=== PATIENT | female | born 1970 | race Caucasian/White ===

== ENCOUNTER 2020-11-30 04:31 | Inpatient (IN) | payer OTHER ==
[~2020-11-30] VITALS: Ht 162.6 cm; Wt 157.8 kg
[2020-11-30 05:53] LABS: Basophils # (auto) 0.1 10 ^3/uL (0-0.2); Basophils % (auto) 0.6 % (0.0-2.0); Eosinophils # (auto) 0 10 ^3/uL (0-0.8); Eosinophils % (auto) 0.5 % (0.0-7.0); Hematocrit 40.6 % (36.0-46.0); Hemoglobin 14.2 g/dL (12.2-16.2); Lymphocytes # (auto) 1.9 10 ^3/uL (0.4-5.4); Mean Corpuscular Hemoglobin 31.4 pg (28.0-32.0); Mean Corpuscular Hgb Conc. 34.8 g/dL (32.0-36.0); Mean Corpuscular Volume 90.1 fL (80.0-100.0); Monocytes # (auto) 0.6 10 ^3/uL (0-1.3); Monocytes % (auto) 6.2 % (0.0-12.0); Neutrophils # (auto) 7.4 10 ^3/uL (1.6-8.6); Neutrophils % (auto) 73.7 % (37.0-80.0); Nucleated Red Blood Cells % 0.1 %; Red Blood Cells 4.51 10^6/uL (4.0-5.20); Red Cell Distribution Width 13.9 % (11.8-14.3)
[2020-11-30 05:58] LABS: Albumin 3.5 g/dL (3.4-5.0); Anion Gap 6 (5-15); Blood Urea Nitrogen 10 mg/dL (7-18); Calcium 8.8 mg/dL (8.5-10.1); Carbon Dioxide 26 mmol/L (21-32); Chloride 107 mmol/L (98-107); Glucose 114 mg/dL (74-106); Magnesium 2.2 mg/dL (1.6-2.6); Sodium 139 mmol/L (136-145)
[2020-11-30 06:04] LABS: Alanine Aminotransferase 40 U/L (13-56); Alkaline Phosphatase 96 U/L (45-117); Aspartate Aminotransferase 27 U/L (15-37); BUN/Creatinine Ratio 11.8; Bilirubin, Total 0.6 mg/dL (0.2-1.0); GFR African American 91 mL/min; GFR Non-African American 76 mL/min; INR 1.08 (0.9-1.15); Total Protein 7.9 g/dL (6.4-8.2)
[2020-11-30] MEDS ORDERED: HYDROcodone-ACET 10/325MG TAB PO ONE (10:15)
[2020-11-30] MEDS ORDERED: NITROGLYCERIN 0.4 MG SL TAB SL PRN (15:15)
[2020-11-30] MEDS ORDERED: MORPHINE SULFATE INJECTION 2 MG/2 ML SYRG IV PRN (15:15)
[2020-11-30] MEDS ORDERED: DEXTROSE (50%) 50ML SYRG IV PRN (15:30)
[2020-11-30] MEDS ORDERED: TEMAZEPAM 15 MG CAP PO PRN (15:30)
[2020-11-30] MEDS ORDERED: ACETAMINOPHEN 500 MG TAB PO PRN (15:30)
[2020-11-30] MEDS ORDERED: traMADol HCL 50 MG TAB PO PRN (15:30)
[2020-11-30] MEDS ORDERED: PROMETHAZINE HCL 25 MG/ML 1ML IV PRN (15:30)
[2020-11-30] MEDS ORDERED: LACTULOSE 20Gm/30ML SOLN PO PRN (15:30)
[2020-11-30 16:24] LABS: Urine Amorphous Crystal FEW /hpf (None Seen); Urine Bacteria FEW /hpf (None Seen); Urine Blood Negative /uL (Negative); Urine Mucus FEW (None Seen); Urine WBC 3 /hpf (0 - 5)
[2020-11-30] MEDS: ACCU-CHEK COMFORT CURVE STRIP VI SCH ×2 (17:20→22:15)
[2020-11-30] MEDS ORDERED: ATORVASTATIN 20 MG TAB PO SCH (22:00)
[2020-11-30] MEDS ORDERED: InsuLIN REG 1unit/0.01ml Soln (100units/ml) SC SCH (22:00)
[2020-11-30] MEDS: CARVEDILOL 3.125 MG TAB PO SCH (22:16)
[2020-12-01 01:56] VITALS: BP 141/87
[2020-12-01 02:22] VITALS: BP 141/87
[2020-12-01] MEDS ORDERED: MULT-1018 PO (02:32)
[2020-12-01] MEDS ORDERED: ASCO500C5 OR (02:32)
[2020-12-01] MEDS ORDERED: LISI-275 PO (02:32)
[2020-12-01 05:00] VITALS: BP 112/64
[2020-12-01 07:14] LABS: Cholesterol 144 mg/dL (< 200); HDL Cholesterol 40 mg/dL (40-59); LDL Cholesterol 89 mg/dL (< 100); Triglycerides 113 mg/dL (< 150)
[2020-12-01 09:00] VITALS: BP 128/82
[2020-12-01] MEDS: CARVEDILOL 3.125 MG TAB PO SCH (09:47)
[2020-12-01] MEDS ORDERED: ENALAPRIL MALEATE 10 MG TAB PO SCH (10:00)
[2020-12-01] MEDS ORDERED: POTASSIUM CHL 20 Meq TABLET PO SCH (10:00)
[2020-12-01] MEDS ORDERED: ASPirin 81 mg TAB PO SCH (10:00)
[2020-12-01] MEDS ORDERED: ENOXAPARIN SOD 40 MG/0.4 ML SYRINGE SC SCH (10:00)
[2020-12-01] MEDS ORDERED: FUROSEMIDE 40 MG/4 ML VIAL IV SCH (10:00)
[2020-12-01 12:23] VITALS: BP 128/82
== END 2020-12-01 13:30 | disposition home or self-care (01) | DRG 205 ==
LOC: ER 04:31 → TELE 15:15 → TELE-WESTW 23:53
PROVIDERS: ADMIT Internal Medicine; ATTEND Internal Medicine
DX: M94.0 Chondrocostal junction syndrome [Tietze] (principal); I50.33 Acute on chronic diastolic (congestive) heart failure; I24.9 Acute ischemic heart disease, unspecified; J98.11 Atelectasis; Z68.43 Body mass index [BMI] 50.0-59.9, adult; I11.0 Hypertensive heart disease with heart failure; R73.9 Hyperglycemia, unspecified; E66.01 Morbid (severe) obesity due to excess calories; Z20.822 Contact with and (suspected) exposure to COVID-19; Z83.3 Family history of diabetes mellitus; Z86.711 Personal history of pulmonary embolism
CPT/HCPCS: 36415; 71045; 80053; 80061; 81001; 82550; 82962; 83036; 83605; 83735; 83880; 84443; 84484; 84702; 85025; 85379; 85610; 85652; 86141; 87426; 93005; 93306; 93970; G0378; J1815